=== PATIENT | female | born 1990 | race Two or more races ===

== ENCOUNTER 2017-03-04 16:01 | Emergency (ER) | payer SELFPAY ==
[~2017-03-04] VITALS: Ht 162.6 cm; Wt 53.5 kg
[2017-03-04 16:20] VITALS: BP 112/82
--- NOTE | 2017-03-04 16:27 | Emergency Room Report ---
History of Present Illness General Chief Complaint: Abdominal Pain Source: Patient Present Illness HPI Patient has a fairly complicated history. Patient has a feeding tube in place , ileostomy bag status post colon cancer resection. Did not have any chemotherapy prior to this patient reports that everything was done at [facility]. Feeding tube was placed about one month ago patient reports that she's having difficulty eating and vomits, and that is why she had the feeding tube placed Denies any headache or visual changes denies any neck pain or photophobia Patient feels that there is also increased output in the ileostomy bag Pain is diffuse 5/10 mainly concerned about vomiting as well Allergies: Coded Allergies: METOCLOPRAMIDE (Verified Allergy, Unknown, 03/04/17) Patient History Past Medical History: see triage record Pertinent Family History: none Last Menstrual Period: 02/25/17 Now: No Reviewed Nursing Documentation: PMH: Agreed, PSxH: Agreed Review of Systems All Other Systems: negative except mentioned in HPI Physical Exam Vital Signs Date Time Temp Pulse Resp B/P (MAP) Pulse Ox O2 Delivery O2 Flow Rate FiO2 03/04/17 16:06 98.8 105 15 107/75 99 Room Air Sp02 EP Interpretation: reviewed, normal General Appearance: mild distress - appears nauseated Head: normocephalic, atraumatic Eyes: bilateral eye PERRL, bilateral eye EOMI ENT: hearing grossly normal, normal pharynx, TMs + canals normal, uvula midline Neck: full range of motion, supple, no meningismus, no bony tend Respiratory: lungs clear, normal breath sounds, no rhonchi, no respiratory distress, no retraction, no accessory muscle use Cardiovascular #1: normal peripheral pulses, regular rate, rhythm, no edema, no gallop, no JVD, no murmur Gastrointestinal: no organomegaly, non-distended, no guarding, no hernia, no pulsatile mass, no rebound, other - Evidence of previous abdominal surgery, patient has ileostomy bag in the right lower abdomen, there is drainage, feeding tube is in the left upper quadrant. No obvious fluctuance Genitourinary: no CVA tenderness Musculoskeletal: normal inspection Neurologic: oriented x3, responsive, cup setter lockstitch III-XII nml as tested, motor strength/ tone normal, sensory intact Psychiatric: mood/affect normal Skin: warm/dry, palpation normal Lymphatic: normal inspection, no adenopathy Medical Decision Making Diagnostic Impression: Primary Impression: Abdominal pain ER Course With the patient's history and examination, multiple differentials considered, including but not limited to , ectopic , ovarian torsion, gastritis, cholecystitis, pancreatitis, appendicitis Given the patient's complicated history other differentials such as obstruction , perforation considered Patient's CAT scan result is fairly benign She hasn't significantly better throughout her stay No signs of any obvious infectious pathology patient reports that she is out of her Zofran medication she does have multispecialty followup At this time given the extended observation, extensive evaluation And the patient's improvement she is stable for initial conservative outpatient trial , Labs Test 03/04/17 16:31 03/04/17 16:40 Urine Color Pale yellow Urine Appearance Slightly cloudy Urine pH 5 (4.5-8.0) Urine Specific [place] 1.025 (1.005-1.035) Urine Protein Negative (NEGATIVE) Urine Glucose (UA) Negative (NEGATIVE) Urine Ketones Negative (NEGATIVE) Urine Occult Blood Negative (NEGATIVE) Urine Nitrite Negative (NEGATIVE) Urine Bilirubin Negative (NEGATIVE) Urine Urobilinogen Normal MG/DL (0.0-1.0) Urine Leukocyte Esterase 1+ (NEGATIVE) Urine RBC 0-2 /HPF (0 - 2) Urine WBC 2-4 /HPF (0 - 2) Urine Squamous Epithelial Cells Few /LPF (NONE/OCC) Urine Amorphous Sediment Moderate /LPF (NONE) Urine Bacteria Few /HPF (NONE) Urine HCG, Qualitative Negative White Blood Count 9.8 K/UL (4.8-10.8) Red Blood Count 4.42 M/UL (4.20-5.40) Hemoglobin 12.9 G/DL (12.0-16.0) Hematocrit 39.2 % (37.0-47.0) Mean Corpuscular Volume 89 FL (80-99) Mean Corpuscular Hemoglobin 29.3 PG (27.0-31.0) Mean Corpuscular Hemoglobin Concent 33.0 G/DL (32.0-36.0) Red Cell Distribution Width 15.1 % (11.6-14.8) Platelet Count 422 K/UL (150-450) Mean Platelet Volume 6.0 FL (6.5-10.1) Neutrophils (%) (Auto) 68.6 % (45.0-75.0) Lymphocytes (%) (Auto) 23.2 % (20.0-45.0) Monocytes (%) (Auto) 6.4 % (1.0-10.0) Eosinophils (%) (Auto) 0.5 % (0.0-3.0) Basophils (%) (Auto) 1.4 % (0.0-2.0) Sodium Level 138 mEQ/L (135-145) Potassium Level 4.2 mEQ/L (3.4-4.9) Chloride Level 98 mEQ/L (98-107) Carbon Dioxide Level 22 mEQ/L (20-30) Anion Gap 18 (5-15) Blood Urea Nitrogen 12 mg/dL (7-23) Creatinine 0.8 mg/dL (0.5-0.9) Estimat Glomerular Filtration Rate > 60 mL/min (>60) Glucose Level 102 mg/dL (74-106) Calcium Level 10.0 mg/dL (8.6-10.2) Total Bilirubin 0.8 mg/dL (0.0-1.2) Aspartate Amino Transf (AST/SGOT) 28 U/L (5-40) Alanine Aminotransferase (ALT/SGPT) 8 U/L (3-33) Alkaline Phosphatase 85 U/L (35-104) Total Protein 9.5 g/dL (6.6-8.7) Albumin 5.2 g/dL (3.5-5.2) Globulin 4.3 g/dL Albumin/Globulin Ratio 1.2 (1.0-2.7) Lipase 31 U/L (< 60) CT/MRI/US Diagnostic Results CT/MRI/US Diagnostic Results : Impression CT abdomen pelvis: Please refer to her report for full specifics, there is reading of multiple small nodular calcifications in the region of the pancreatic head and the uncinate process that could be related to chronic calcific pancreatitis however some appear to be possibly in the distal common bile duct no significant dilatation of the duct however is identified there is mild dilatation of pancreatic duct no evidence of renal calculi there is moderate left hydronephrosis with hydroureter uncertain etiology no urinary bladder no evidence of bowel junction or pneumoperitoneum Last Vital Signs Date Time Temp Pulse Resp B/P (MAP) Pulse Ox O2 Delivery O2 Flow Rate FiO2 03/04/17 16:06 98.8 105 15 107/75 99 Room Air Status: improved Disposition: HOME, SELF-CARE Condition: Improved Scripts Ondansetron Odt* (ZOFRAN ODT*) 4 Mg Tab.rapdis 4 MG ORAL Q6H Y for Nausea & Vomiting, #20 TAB 0 Refills Prov: ALIYA VAUGHN D.O. 03/04/17 Acetaminophen With Codeine (T#3) (TYLENOL #3 TAB*) Y Tab 1 TAB ORAL Q8H Y for For Pain, #15 TAB Prov: ALIYA VAUGHN D.O. 03/04/17 Referrals: NOT CHOSEN IPA/,REFERRING (PCP) Additional Instructions: Patient is provided with the discharge instructions notified to follow up with primary doctor in the next 2-3 days otherwise return to the er with any worsening symptoms. Please note that this report is being documented using [employer] technology. This can lead to erroneous entry secondary to incorrect interpretation by the dictating instrument. ALIYA VAUGHN D.O. Mar 04, 2017 16:27
[2017-03-04 16:55] LABS: BASOPHILS % (AUTO) 1.4 % (0.0-2.0); EOSINOPHILS % (AUTO) 0.5 % (0.0-3.0); LYMPHOCYTES % (AUTO) 23.2 % (20.0-45.0); MEAN CORPUSCULAR HEMOGLOBIN 29.3 PG (27.0-31.0); MEAN CORPUSCULAR VOLUME 89 FL (80-99); MONOCYTES % (AUTO) 6.4 % (1.0-10.0); NEUTROPHILS % (AUTO) 68.6 % (45.0-75.0); PLATELET COUNT 422 K/UL (150-450); RED BLOOD COUNT 4.42 M/UL (4.20-5.40); RED CELL DISTRIBUTION WIDTH 15.1 % (11.6-14.8); WHITE BLOOD COUNT 9.8 K/UL (4.8-10.8)
[2017-03-04] MEDS: DiphenhydrAMINE 50mg/ml Inj IVP ONE ×2 (16:56→17:26)
[2017-03-04 16:57] LABS: KETONES,URINE NEGATIVE (NEGATIVE); LEUKOCYTE ESTERASE ,URINE 1+ (NEGATIVE); NITRITE,URINE NEGATIVE (NEGATIVE); PH,URINE 5 (4.5-8.0); PROTEIN,URINE NEGATIVE (NEGATIVE); UROBILINOGEN,URINE NORMAL MG/DL (0.0-1.0)
[2017-03-04 16:59] LABS: APPEARANCE,URINE SLIGHTLY CLOUDY
[2017-03-04] MEDS: HYDROmorphone 1mg/ml Carpuject IVP ONE ×2 (17:05→17:26)
[2017-03-04 17:07] LABS: RBC,URINE 0-2 /HPF (0 - 2)
[2017-03-04 17:08] LABS: AMORPHOUS SEDIMENT,UR MODERATE /LPF; BACTERIA,URINE FEW /HPF; SQUAMOUS EPITHELIAL CELL,UR FEW /LPF (NONE/OCC)
[2017-03-04 17:11] LABS: ALANINE AMINOTRANSFERASE 8 U/L (3-33); ALBUMIN/GLOBULIN RATIO 1.2 (1.0-2.7); ANION GAP 18 (5-15); ASPARTATE AMINO TRANSFERASE 28 U/L (5-40); CARBON DIOXIDE 22 mEQ/L (20-30); CHLORIDE 98 mEQ/L (98-107); CREATININE 0.8 mg/dL (0.5-0.9); GLOMERULAR FILTRATION RATE > 60 mL/min (>60); HEMOLYSIS 126; LIPASE 31 U/L (< 60); POTASSIUM 4.2 mEQ/L (3.4-4.9); SODIUM 138 mEQ/L (135-145); TOTAL PROTEIN 9.5 g/dL (6.6-8.7)
[2017-03-04 18:41] VITALS: BP 111/68
[2017-03-04] MEDS ORDERED: DiphenhydrAMINE 50mg/ml Inj IVP ONE (19:45)
[2017-03-04] MEDS ORDERED: HYDROmorphone 1mg/ml Carpuject IVP ONE (19:45)
[2017-03-04 19:47] VITALS: BP 101/67
[2017-03-04] MEDS ORDERED: ZOFRAN ODT4 MG ORAL (20:22)
[2017-03-04] MEDS ORDERED: ACETAMINOPHEN-1 EAC1 ORAL (20:22)
[2017-03-04 20:32] VITALS: BP 107/2
--- NOTE | 2017-03-05 11:33 | Diagnostic Imaging Report ---
Indication: Abdominal pain Technique: CT scan of the abdomen and pelvis was performed from the diaphragms to the symphysis pubis with bowel contrast material. No IV contrast was administered per specific request of the ordering physician. 5 mm sections were generated. Axial, coronal, and sagittal images are presented. Dose: Total Dose Length Product - DLP [address] Dose Index - CTDIvol(s) 10.99 mGy. Comparison: None Findings: There is a gastrojejunostomy tube in the stomach. The jejunostomy portion of the tube appears to be in the second portion of the duodenum. This was coiled in the stomach. The liver is normal. The gallbladder is unremarkable. The spleen is normal. There are calcifications in the head of the pancreas. The pancreatic duct is prominent. Adrenal glands are unremarkable. There is left hydronephrosis and hydroureter. The right kidney is unremarkable. Proximal small bowel is mildly dilated with some air-fluid levels. This is nonobstructive however. A right lower quadrant ileostomy is evident. Most of the colon appears absent. It is unsure whether a small portion of colon is present distally. A small amount of fluid is noted in the vagina. The uterus is normal. The bladder is unremarkable. Multiple pelvic clips are present.. Impression: Lack of IV contrast limits evaluation. Gastrojejunostomy tube with the tip of the tube in the duodenum. Most of the jejunostomy portion of the tube is curled in the stomach. A left hydronephrosis and hydroureter. Previous at least partial colectomy. It is uncertain whether or not any colon is left in the pelvis. Ileostomy in the right lower quadrant. Small amount of fluid in the vagina. Dilated proximal small bowel loops. This is nonobstructive. Calcification in the pancreatic head consistent with chronic pancreatitis. Mild prominence of the pancreatic duct. The above report is concordant with preliminary reading by [employer] . The CT scanner at [facility] is accredited by the [employer] and the scans are performed using protocols designed to limit radiation exposure to as low as reasonably achievable to attain images of sufficient resolution adequate for diagnostic evaluation.
== END 2017-03-04 20:32 | disposition home or self-care (01) ==
LOC: EMR 16:15
DX: R10.9 Unspecified abdominal pain (principal); Z85.038 Personal history of other malignant neoplasm of large intestine; Z88.8 Allergy status to other drugs, medicaments and biological substances; N13.30 Unspecified hydronephrosis; Z93.2 Ileostomy status
CPT/HCPCS: 36415; 74176; 80053; 81003; 81025; 83690; 85025; 96361; 96374; 96375; 99284; J1170; J1200; J2405

== ENCOUNTER 2017-03-13 14:39 | Emergency (ER) | payer MEDICAID ==
[~2017-03-13] VITALS: Ht 162.6 cm; Wt 53.5 kg
[~2017-03-13 14:39] MED LIST: ACETAMINOPHEN-1 EAC1 ORAL; ZOFRAN ODT4 MG ORAL
--- NOTE | 2017-03-13 15:07 | Emergency Room Report ---
History of Present Illness General Chief Complaint: Abdominal Pain Source: Patient, Medical Record Present Illness HPI 27YOF walk-in with intermittent 4-5 days sharp, 8/10 lower abdominal pain "across the whole bottom of my stomach" and radiating to left flank with assoc nausea/vomiting, unable to tolerate PO and chills. Diarrhea in iliostomy bag No urinary complaints Complicated past surgical history - multiple surgical interventions previous Was seen here 9 days ago. Had normal labs, CTAP Allergies: Coded Allergies: METOCLOPRAMIDE (Verified Allergy, Unknown, 03/04/17) Patient History Past Medical History: none Past Surgical History: other - iliostomy, multiple abd surgeries Pertinent Family History: none Social History: Denies: smoking, alcohol use, drug use Last Menstrual Period: 02/25/17 Now: No Immunizations: UTD Reviewed Nursing Documentation: PMH: Agreed, PSxH: Agreed Nursing Documentation-PMH Hx Cancer: Yes - Colon - ileostomy and g-j tube ~ 6 weeks post op; Pancreatitis Review of Systems All Other Systems: negative except mentioned in HPI Physical Exam Vital Signs Date Time Temp Pulse Resp B/P (MAP) Pulse Ox O2 Delivery O2 Flow Rate FiO2 03/13/17 14:48 99.0 93 16 110/73 100 Room Air Sp02 EP Interpretation: reviewed, normal General Appearance: normal inspection, well appearing, no apparent distress, alert, GCS 15, non-toxic Head: normocephalic, atraumatic Eyes: bilateral eye PERRL, bilateral eye EOMI ENT: normal ENT inspection, hearing grossly normal, normal voice Neck: normal inspection, full range of motion, supple, no bony tend Respiratory: normal inspection, lungs clear, normal breath sounds, no respiratory distress, no retraction, no wheezing Cardiovascular #1: regular rate, rhythm, no edema Gastrointestinal: normal inspection, normal bowel sounds, soft, no guarding, no hernia, other - TTP across lower abdomen. No peritonitis. Mild left CVAT. 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 nml as tested, motor strength/tone normal, speech normal Psychiatric: normal inspection, judgement/insight normal, mood/affect normal Skin: normal inspection, normal color, no rash Lymphatic: normal inspection Medical Decision Making Diagnostic Impression: Primary Impression: Abdominal pain Qualified Codes: R10.84 - Generalized abdominal pain ER Course H&H stable No leuks No metabolic abnormalities UA negative for infection Urine preg negative Analgesia, pepcid, anti-emetic given Abd no non-tender on serial exam Feels better Tolerating PO In light of normal CT last week and normal labs today, no acute need for repeat imaging Low suspicion for acute bacterial or surgical process In shared decision making, patient will go home - lives close by - with bland diet, PRN zofran, pepcid Return for worsening pain Last Vital Signs Date Time Temp Pulse Resp B/P (MAP) Pulse Ox O2 Delivery O2 Flow Rate FiO2 03/13/17 14:48 99.0 93 16 110/73 100 Room Air Status: improved Disposition: HOME, SELF-CARE Scripts Ondansetron Odt* (ZOFRAN ODT*) 4 Mg Tab.rapdis 4 MG ORAL BID Y for Nausea & Vomiting for 7 Days, #30 TAB 0 Refills Prov: SIDNEY FLETCHER M.D. 03/13/17 Famotidine (PEPCID) 40 Mg Tablet 40 MG PO DAILY for 7 Days, #14 TAB 0 Refills Prov: SIDNEY FLETCHER M.D. 03/13/17 SIDNEY FLETCHER M.D. Mar 13, 2017 15:07
[2017-03-13] MEDS ORDERED: Morphine Sulfate 2mg/ml Inj IVP ONE (15:15)
[2017-03-13] MEDS ORDERED: LR 1000ml 1,000 ML IV STA (15:29)
[2017-03-13 15:54] LABS: APPEARANCE,URINE CLEAR; KETONES,URINE NEGATIVE (NEGATIVE); LEUKOCYTE ESTERASE ,URINE NEGATIVE (NEGATIVE); NITRITE,URINE NEGATIVE (NEGATIVE); PH,URINE 6 (4.5-8.0); PROTEIN,URINE NEGATIVE (NEGATIVE); UROBILINOGEN,URINE NORMAL MG/DL (0.0-1.0)
[2017-03-13 16:00] LABS: BASOPHILS % (AUTO) 1.5 % (0.0-2.0); EOSINOPHILS % (AUTO) 1.5 % (0.0-3.0); LYMPHOCYTES % (AUTO) 32.8 % (20.0-45.0); MEAN CORPUSCULAR HEMOGLOBIN 27.8 PG (27.0-31.0); MEAN CORPUSCULAR HGB CONC 31.1 G/DL (32.0-36.0); MEAN CORPUSCULAR VOLUME 89 FL (80-99); MEAN PLATELET VOLUME 5.7 FL (6.5-10.1); MONOCYTES % (AUTO) 6.4 % (1.0-10.0); NEUTROPHILS % (AUTO) 57.8 % (45.0-75.0); PLATELET COUNT 307 K/UL (150-450); RED BLOOD COUNT 3.51 M/UL (4.20-5.40); RED CELL DISTRIBUTION WIDTH 15.6 % (11.6-14.8); WHITE BLOOD COUNT 5.6 K/UL (4.8-10.8)
[2017-03-13 16:07] LABS: ALANINE AMINOTRANSFERASE < 5 U/L (3-33); ANION GAP 18 (5-15); ASPARTATE AMINO TRANSFERASE 14 U/L (5-40); CALCIUM 8.7 mg/dL (8.6-10.2); CARBON DIOXIDE 19 mEQ/L (20-30); CHLORIDE 103 mEQ/L (98-107); CREATININE 0.7 mg/dL (0.5-0.9); GLOMERULAR FILTRATION RATE > 60 mL/min (>60); HEMOLYSIS 5; LIPASE 36 U/L (< 60); POTASSIUM 3.6 mEQ/L (3.4-4.9); SODIUM 140 mEQ/L (135-145); TOTAL PROTEIN 7.3 g/dL (6.6-8.7)
[2017-03-13] MEDS ORDERED: Famotidine 20 MG/ 2ML VIAL IVP ONE (16:15)
[2017-03-13] MEDS ORDERED: ZOFRAN ODT4 MG ORAL (16:28)
[2017-03-13] MEDS ORDERED: PEPCID40 MG PO (16:28)
[2017-03-13 17:30] VITALS: BP 122/81
== END 2017-03-13 17:30 | disposition home or self-care (01) ==
LOC: EMR 17:18
DX: R10.30 Lower abdominal pain, unspecified (principal); Z93.2 Ileostomy status
CPT/HCPCS: 36415; 80053; 81003; 81025; 83690; 85025; 96374; 96375; 99284; J2270; J2405; J7120; S0028

== ENCOUNTER 2017-03-18 02:47 | Emergency (ER) | payer MEDICAID ==
[~2017-03-18] VITALS: Ht 162.6 cm; Wt 53.5 kg
[~2017-03-18 02:47] MED LIST changes: +PEPCID40 MG PO
[2017-03-18] MEDS ORDERED: IRON159 MG PO (02:57)
[2017-03-18] MEDS ORDERED: HYDROmorphone 1mg/ml Carpuject IVP ONE (03:15)
--- NOTE | 2017-03-18 03:23 | Emergency Room Report ---
History of Present Illness General Chief Complaint: Abdominal Pain Source: Patient Present Illness HPI This is a 27-year-old female with a history of colon cancer status post resection. She has an ileostomy and a colostomy. She presents with chief complaint abdominal pain. Ongoing for about a week now. Increasing pain. Increasing nausea and vomiting. Decreased stool output. Pain is 10 out of 10, sharp in nature. Diffuse. Allergies: Coded Allergies: METOCLOPRAMIDE (Verified Allergy, Unknown, 03/04/17) Patient History Past Medical History: see triage record, old chart reviewed Past Surgical History: other Pertinent Family History: none Social History: Denies: smoking Last Menstrual Period: 02/25/17 Now: No Immunizations: other Reviewed Nursing Documentation: PMH: Agreed, PSxH: Agreed Nursing Documentation-PMH Past Medical History: No History, Except For Hx Cancer: Yes - Colon - ileostomy bag and g-j tube ~ 6 weeks post op; Pancreatitis Review of Systems Eye: Denies: eye pain, blurred vision ENT: Denies: ear pain, nose congestion, throat swelling Respiratory: Denies: cough, shortness of breath Cardiovascular: Denies: chest pain, palpitations Gastrointestinal: Reports: abdominal pain, nausea, vomiting, Denies: diarrhea Musculoskeletal: Denies: back pain, joint pain Skin: Denies: rash Neurological: Denies: headache, numbness Endocrine: Denies: increased thirst, increased urine Hematologic/Lymphatic: Denies: easy bruising All Other Systems: negative except mentioned in HPI Physical Exam Vital Signs Date Time Temp Pulse Resp B/P (MAP) Pulse Ox O2 Delivery O2 Flow Rate FiO2 03/18/17 02:52 97.9 93 17 116/75 98 Room Air vitals normal Sp02 EP Interpretation: reviewed, normal General Appearance: well appearing, no apparent distress, alert Head: normocephalic, atraumatic Eyes: bilateral eye PERRL, bilateral eye EOMI ENT: hearing grossly normal, normal pharynx Neck: full range of motion, supple, no meningismus Respiratory: chest non-tender, lungs clear, normal breath sounds Cardiovascular #1: regular rate, rhythm, no murmur Gastrointestinal: no mass, no organomegaly, no bruit, non-distended, abnormal bowel sounds - Hyperactive, tenderness - Diffuse Musculoskeletal: back normal, gait/station normal, normal range of motion Psychiatric: mood/affect normal Skin: warm/dry Medical Decision Making Diagnostic Impression: Primary Impression: Abdominal pain Qualified Codes: R10.9 - Unspecified abdominal pain Additional Impression: Opioid dependence Qualified Codes: F11.20 - Opioid dependence, uncomplicated ER Course Patient present with abdominal pain. CT scan unremarkable. Everything is chronic. On the [facility] system, she has multiple visit to different hospital and had prescription from different doctors. I suspect a drug-seeking behavior here. We'll discharge home. Lab Results Impression labs unremarkable CT/MRI/US Diagnostic Results CT/MRI/US Diagnostic Results : Imaging Test Ordered: CT abdomen and pelvis Impression read by radiologist. No acute changes. Last Vital Signs Date Time Temp Pulse Resp B/P (MAP) Pulse Ox O2 Delivery O2 Flow Rate FiO2 03/18/17 02:52 97.9 93 17 116/75 98 Room Air Status: improved Disposition: HOME, SELF-CARE Condition: Stable Scripts Tramadol Hcl* (ULTRAM*) 50 Mg Tablet 50 MG ORAL Q6H Y for For Pain, #15 TAB 0 Refills Prov: TACO BONILLA M.D. 03/18/17 Referrals: NOT CHOSEN IPA/,REFERRING (PCP) Patient Instructions: Abdominal Pain, Adult Additional Instructions: Followup with your DrNiya in 7 days. Stop going to different ERs for pain medication. This will increase her risk for getting CAT scan and adverse affect of radiation. Return if symptom worsen. TACO BONILLA M.D. Mar 18, 2017 03:23
[2017-03-18 03:31] LABS: BASOPHILS % (AUTO) 1.7 % (0.0-2.0); EOSINOPHILS % (AUTO) 1.5 % (0.0-3.0); LYMPHOCYTES % (AUTO) 38.3 % (20.0-45.0); MEAN CORPUSCULAR HEMOGLOBIN 27.5 PG (27.0-31.0); MEAN CORPUSCULAR HGB CONC 31.4 G/DL (32.0-36.0); MEAN CORPUSCULAR VOLUME 87 FL (80-99); MONOCYTES % (AUTO) 6.6 % (1.0-10.0); NEUTROPHILS % (AUTO) 51.9 % (45.0-75.0); PLATELET COUNT 377 K/UL (150-450); RED BLOOD COUNT 4.49 M/UL (4.20-5.40); RED CELL DISTRIBUTION WIDTH 15.1 % (11.6-14.8); WHITE BLOOD COUNT 7.6 K/UL (4.8-10.8)
[2017-03-18 03:33] LABS: APPEARANCE,URINE CLEAR; KETONES,URINE NEGATIVE (NEGATIVE); LEUKOCYTE ESTERASE ,URINE NEGATIVE (NEGATIVE); NITRITE,URINE NEGATIVE (NEGATIVE); PH,URINE 5 (4.5-8.0); PROTEIN,URINE NEGATIVE (NEGATIVE); UROBILINOGEN,URINE NORMAL MG/DL (0.0-1.0)
[2017-03-18 03:44] LABS: ALANINE AMINOTRANSFERASE 7 U/L (3-33); ALBUMIN/GLOBULIN RATIO 1.2 (1.0-2.7); ANION GAP 18 (5-15); ASPARTATE AMINO TRANSFERASE 17 U/L (5-40); CALCIUM 9.1 mg/dL (8.6-10.2); CARBON DIOXIDE 22 mEQ/L (20-30); CHLORIDE 98 mEQ/L (98-107); CREATININE 0.7 mg/dL (0.5-0.9); GLOMERULAR FILTRATION RATE > 60 mL/min (>60); HEMOLYSIS 3; LIPASE 32 U/L (< 60); POTASSIUM 3.6 mEQ/L (3.4-4.9); SODIUM 138 mEQ/L (135-145); TOTAL PROTEIN 8.5 g/dL (6.6-8.7)
[2017-03-18] MEDS ORDERED: TRAMADOL HCL50 MG ORAL (05:48)
[2017-03-18 06:02] VITALS: BP 122/88
--- NOTE | 2017-03-18 09:20 | Diagnostic Imaging Report ---
Indication: Abdominal pain Technique: CT of the abdomen and pelvis utilizing automated exposure control with intravenous contrast. Venous scanning performed. CT dose: Total DLP 473 mGycm; CTDI vol 10.6 mGy Comparison: None Findings: The liver, adrenal glands and spleen are unremarkable. There is questionable density within the gallbladder. Punctate calcifications are demonstrated of the pancreatic head with mildly prominent pancreatic duct measuring up to 2 mm. Feeding tube is present with the tip at the second/third portion junction of the duodenum. There is again mild left hydronephrosis and proximal hydroureter. The right kidney is grossly unremarkable. The small bowel loops are normal in caliber. Postsurgical changes of the bowel are seen with a right lower quadrant ostomy. There is evidence of colectomy. There is stable mild wall bowel wall thickening adjacent to the anastomotic sutures in the right pelvis. Mild fluid is again seen in the vagina. The osseous structures are stable. Impression: Limit evaluation of the bowel without oral contrast. Stable feeding tube with tip in the duodenum. Stable mild to moderate left hydronephrosis and proximal hydroureter. No calculi. Stable postsurgical changes of bowel with right lower quadrant ostomy. No evidence of obstruction. Small amount of fluid in the vagina, unchanged. Calcification of the pancreatic head with mild prominence of the pancreatic duct suggestive of chronic pancreatitis. Other stable findings of the abdomen and pelvis as above. The CT scanner at [facility] is accredited by the [employer] and the scans are performed using protocols designed to limit radiation exposure to as low as reasonably achievable to attain images of sufficient resolution adequate for diagnostic evaluation.
== END 2017-03-18 06:04 | disposition home or self-care (01) ==
LOC: EMR 03:19
DX: R10.9 Unspecified abdominal pain (principal); R11.2 Nausea with vomiting, unspecified; F11.20 Opioid dependence, uncomplicated; Z88.8 Allergy status to other drugs, medicaments and biological substances; Z85.038 Personal history of other malignant neoplasm of large intestine; Z93.2 Ileostomy status; Z93.1 Gastrostomy status
CPT/HCPCS: 36415; 74177; 80053; 81003; 81025; 83690; 85025; 96374; 96375; 99284; J1170; J2405; Q9967

== ENCOUNTER 2017-03-22 00:11 | Emergency (ER) | payer MEDICAID ==
[~2017-03-22] VITALS: Ht 162.6 cm; Wt 54.0 kg
[~2017-03-22 00:11] MED LIST changes: +IRON159 MG PO; +TRAMADOL HCL50 MG ORAL
[2017-03-22] MEDS ORDERED: PHENERGAN25 M1 ORAL (00:39)
--- NOTE | 2017-03-22 00:40 | Emergency Room Report ---
History of Present Illness General Chief Complaint: Abdominal Pain Source: Patient Present Illness HPI Is a 27-year-old female with a complex medical history. She has a history of colon cancer status post resection. She has an ileostomy and a colonoscopy. She has multiple CT scan in the past. She has been here 4 times this month already. This point to [facility] for outpatient CT scan. She has some mild hydronephrosis and mild pancreatic duct dilatation. 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 This can be done as an outpatient. She presents with her typical abdominal pain with nausea vomiting and diarrhea. No fever or chills. Pain is 9/10. She said she can't tolerate the Percocet very well. Zofran is not helping much. Ultram is not helping much either. Allergies: Coded Allergies: METOCLOPRAMIDE (Verified Allergy, Unknown, 03/04/17) Patient History Past Medical History: see triage record, old chart reviewed Past Surgical History: other Pertinent Family History: none Social History: Denies: smoking Last Menstrual Period: 02/25/17 Now: No : 2 Para: 1 Immunizations: other Reviewed Nursing Documentation: PMH: Agreed, PSxH: Agreed Nursing Documentation-PMH Hx Cancer: Yes - Colon - ileostomy bag and g-j tube ~ 6 weeks post op; Pancreatitis Review of Systems Eye: Denies: eye pain, blurred vision ENT: Denies: ear pain, nose congestion, throat swelling Respiratory: Denies: cough, shortness of breath Cardiovascular: Denies: chest pain, palpitations Gastrointestinal: Reports: abdominal pain, diarrhea, nausea, vomiting Musculoskeletal: Denies: back pain, joint pain Skin: Denies: rash Neurological: Denies: headache, numbness Endocrine: Denies: increased thirst, increased urine Hematologic/Lymphatic: Denies: easy bruising All Other Systems: negative except mentioned in HPI Physical Exam Vital Signs Date Time Temp Pulse Resp B/P (MAP) Pulse Ox O2 Delivery O2 Flow Rate FiO2 03/22/17 00:15 97.9 103 20 105/70 100 Room Air vitals normal Sp02 EP Interpretation: reviewed, normal General Appearance: well appearing, no apparent distress, alert Head: normocephalic, atraumatic Eyes: bilateral eye PERRL, bilateral eye EOMI ENT: hearing grossly normal, normal pharynx Neck: full range of motion, supple, no meningismus Respiratory: chest non-tender, lungs clear, normal breath sounds Cardiovascular #1: regular rate, rhythm, no murmur Gastrointestinal: normal bowel sounds, no mass, no organomegaly, no bruit, non- distended, abnormal bowel sounds - Hyperactive, tenderness - Diffuse Musculoskeletal: back normal, gait/station normal, normal range of motion Psychiatric: mood/affect normal Skin: warm/dry Medical Decision Making Diagnostic Impression: Primary Impression: Abdominal pain Qualified Codes: R10.84 - Generalized abdominal pain ER Course Patient with exacerbation of her chronic abdominal pain. I see no need for further workup said she was here recently. We'll discharge home. Last Vital Signs Date Time Temp Pulse Resp B/P (MAP) Pulse Ox O2 Delivery O2 Flow Rate FiO2 03/22/17 00:15 97.9 103 20 105/70 100 Room Air Status: improved Disposition: HOME, SELF-CARE Condition: Stable Scripts Promethazine Hcl* (PHENERGAN*) 25 Mg Tablet 25 MG ORAL Q6H, #30 TAB 0 Refills Prov: TACO BONILLA M.D. 03/22/17 Patient Instructions: Abdominal Pain, Adult Additional Instructions: Followup with your DrNiya in 2-3 days. Return if symptom worsen. TACO BONILLA M.D. Mar 22, 2017 00:40
[2017-03-22] MEDS ORDERED: HYDROmorphone 1mg/ml Carpuject IM ONE (00:45)
[2017-03-22 02:17] VITALS: BP 105/70
== END 2017-03-22 03:19 | disposition home or self-care (01) ==
LOC: EMR 00:35
DX: R10.84 Generalized abdominal pain (principal); G89.29 Other chronic pain; Z93.2 Ileostomy status; C18.9 Malignant neoplasm of colon, unspecified; Z88.8 Allergy status to other drugs, medicaments and biological substances; N13.30 Unspecified hydronephrosis; K55.1 Chronic vascular disorders of intestine; R11.2 Nausea with vomiting, unspecified
CPT/HCPCS: 96360; 96372; 99284; J1170

== ENCOUNTER 2017-04-05 13:56 | Emergency (ER) | payer MEDICAID ==
[~2017-04-05] VITALS: Ht 162.6 cm; Wt 54.0 kg
[~2017-04-05 13:56] MED LIST changes: +PHENERGAN25 M1 ORAL
[2017-04-05] MEDS ORDERED: Mylanta II UD 30ml ORAL ONE (15:00)
[2017-04-05] MEDS ORDERED: Morphine Sulfate 4mg/ml Inj IVP ONE (15:30)
[2017-04-05] MEDS ORDERED: DiphenhydrAMINE 50mg/ml Inj IVP ONE (15:30)
[2017-04-05 15:46] LABS: APPEARANCE,URINE SLIGHTLY CLOUDY; KETONES,URINE NEGATIVE (NEGATIVE); LEUKOCYTE ESTERASE ,URINE NEGATIVE (NEGATIVE); NITRITE,URINE NEGATIVE (NEGATIVE); PH,URINE 8 (4.5-8.0); PROTEIN,URINE NEGATIVE (NEGATIVE); UROBILINOGEN,URINE NORMAL MG/DL (0.0-1.0)
--- NOTE | 2017-04-05 15:46 | Emergency Room Report ---
History of Present Illness General Chief Complaint: Abdominal Pain Source: Patient Present Illness [facility] This is 27-year-old female brought in by self after increased abdominal pain. Patient prior history of chronic abdominal pain do to a biliary stricture. 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 The patient having previous appointment her surgery. She reported having had taken her pain medications without relief. Patient had not been vomiting. She reported having some nausea. She denied any black or bloody stools or hematemesis. She has not been any fever. Allergies: Coded Allergies: METOCLOPRAMIDE (Verified Allergy, Unknown, 03/04/17) Patient History Past Medical History: see triage record Last Menstrual Period: 03/27/17 Now: No : 1 Para: 1 Reviewed Nursing Documentation: PMH: Agreed, PSxH: Agreed Nursing Documentation-PMH Past Medical History: No History, Except For Hx Cancer: Yes - Colon - ileostomy bag and g-j tube ~ 6 weeks post op; Pancreatitis Review of Systems All Other Systems: negative except mentioned in HPI Physical Exam Vital Signs Date Time Temp Pulse Resp B/P (MAP) Pulse Ox O2 Delivery O2 Flow Rate FiO2 04/05/17 14:00 97.9 96 16 124/80 100 Room Air Sp02 EP Interpretation: reviewed, normal General Appearance: normal inspection, well appearing, no apparent distress, alert Head: atraumatic ENT: normal ENT inspection, hearing grossly normal, normal voice Neck: normal inspection, full range of motion, supple, no bony tend Respiratory: normal inspection, lungs clear, normal breath sounds, no respiratory distress, no retraction, no wheezing Cardiovascular #1: regular rate, rhythm, no edema Gastrointestinal: normal inspection, normal bowel sounds, non tender, soft, no guarding, no hernia Genitourinary: no CVA tenderness Musculoskeletal: normal inspection, back normal, normal range of motion Neurologic: normal inspection, alert, oriented x3, responsive, 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 Differential diagnoses included ischemic bowel, appendicitis, perforated viscus, abdominal aortic aneurysm, inferior myocardial infarction, viral gastroenteritis Because of complexity of patient's case laboratory testing and imaging studies were ordered. Lab for testing was unremarkable the patient noted be somewhat anemic however this is not different from her previous exams. Patient was noted to have been scheduled for surgery. Patient was given IV pain medications. Patient has had been seen by surgery have adequate dosage of pain medication. The patient was given prescription for Bentyl. She is advised followup with her surgeon for operative management of her intestinal problems. Labs Test 04/05/17 15:00 White Blood Count 6.7 K/UL (4.8-10.8) Red Blood Count 3.67 M/UL (4.20-5.40) Hemoglobin 9.6 G/DL (12.0-16.0) Hematocrit 33.3 % (37.0-47.0) Mean Corpuscular Volume 91 FL (80-99) Mean Corpuscular Hemoglobin 26.3 PG (27.0-31.0) Mean Corpuscular Hemoglobin Concent 28.9 G/DL (32.0-36.0) Red Cell Distribution Width 15.7 % (11.6-14.8) Platelet Count 444 K/UL (150-450) Mean Platelet Volume 5.1 FL (6.5-10.1) Neutrophils (%) (Auto) 60.8 % (45.0-75.0) Lymphocytes (%) (Auto) 28.0 % (20.0-45.0) Monocytes (%) (Auto) 7.0 % (1.0-10.0) Eosinophils (%) (Auto) 2.5 % (0.0-3.0) Basophils (%) (Auto) 1.8 % (0.0-2.0) Urine Color Pale yellow Urine Appearance Slightly cloudy Urine pH 8 (4.5-8.0) Urine Specific [place] 1.010 (1.005-1.035) Urine Protein Negative (NEGATIVE) Urine Glucose (UA) Negative (NEGATIVE) Urine Ketones Negative (NEGATIVE) Urine Occult Blood Negative (NEGATIVE) Urine Nitrite Negative (NEGATIVE) Urine Bilirubin Negative (NEGATIVE) Urine Urobilinogen Normal MG/DL (0.0-1.0) Urine Leukocyte Esterase Negative (NEGATIVE) Urine RBC 0-2 /HPF (0 - 2) Urine WBC 0-2 /HPF (0 - 2) Urine Squamous Epithelial Cells Moderate /LPF (NONE/OCC) Urine Bacteria Few /HPF (NONE) Urine HCG, Qualitative Negative Sodium Level 135 MMOL/L (136-145) Potassium Level 3.8 MMOL/L (3.5-5.1) Chloride Level 101 MMOL/L (98-107) Carbon Dioxide Level 27 MMOL/L (21-32) Anion Gap 7 (5-15) Blood Urea Nitrogen 10 mg/dL (7-18) Creatinine 0.9 MG/DL (0.55-1.30) Estimat Glomerular Filtration Rate > 60 mL/min (>60) Glucose Level 94 MG/DL (74-106) Calcium Level 9.2 MG/DL (8.5-10.1) Total Bilirubin 0.3 MG/DL (0.2-1.0) Aspartate Amino Transf (AST/SGOT) 23 U/L (15-37) Alanine Aminotransferase (ALT/SGPT) 21 U/L (12-78) Alkaline Phosphatase 116 U/L (46-116) Total Protein 8.2 G/DL (6.4-8.2) Albumin 3.4 G/DL (3.4-5.0) Globulin 4.8 g/dL Albumin/Globulin Ratio 0.7 (1.0-2.7) Lipase 73 U/L (73-393) EKG Diagnostic Results Rate: normal Rhythm: NSR ST Segments: no acute changes Rhythm Strip Diag. Results EP Interpretation: yes Rhythm: NSR, no PVC's, no ectopy Last Vital Signs Date Time Temp Pulse Resp B/P (MAP) Pulse Ox O2 Delivery O2 Flow Rate FiO2 04/05/17 14:00 97.9 96 16 124/80 100 Room Air Status: improved Disposition: HOME, SELF-CARE Condition: Stable Scripts Dicyclomine Hcl* (BENTYL*) 10 Mg Capsule 10 MG ORAL FOUR TIMES A DAY, #30 CAP Prov: Jayesh Abraham 04/05/17 Referrals: NOT CHOSEN [facility]/,REFERRING (PCP) Jayesh Abraham Apr 05, 2017 15:46
[2017-04-05 15:54] LABS: BASOPHILS % (AUTO) 1.8 % (0.0-2.0); EOSINOPHILS % (AUTO) 2.5 % (0.0-3.0); MEAN CORPUSCULAR HEMOGLOBIN 26.3 PG (27.0-31.0); MEAN CORPUSCULAR HGB CONC 28.9 G/DL (32.0-36.0); MEAN CORPUSCULAR VOLUME 91 FL (80-99); MEAN PLATELET VOLUME 5.1 FL (6.5-10.1); NEUTROPHILS % (AUTO) 60.8 % (45.0-75.0); PLATELET COUNT 444 K/UL (150-450); RED BLOOD COUNT 3.67 M/UL (4.20-5.40); RED CELL DISTRIBUTION WIDTH 15.7 % (11.6-14.8); WHITE BLOOD COUNT 6.7 K/UL (4.8-10.8)
[2017-04-05 16:14] LABS: ALANINE AMINOTRANSFERASE 21 U/L (12-78); ALBUMIN/GLOBULIN RATIO 0.7 (1.0-2.7); ANION GAP 7 (5-15); ASPARTATE AMINO TRANSFERASE 23 U/L (15-37); CALCIUM 9.2 MG/DL (8.5-10.1); CARBON DIOXIDE 27 MMOL/L (21-32); CHLORIDE 101 MMOL/L (98-107); CREATININE 0.9 MG/DL (0.55-1.30); GLOMERULAR FILTRATION RATE > 60 mL/min (>60); LIPASE 73 U/L (73-393); POTASSIUM 3.8 MMOL/L (3.5-5.1); SODIUM 135 MMOL/L (136-145); TOTAL PROTEIN 8.2 G/DL (6.4-8.2)
[2017-04-05 16:15] LABS: RBC,URINE 0-2 /HPF (0 - 2); WBC,URINE 0-2 /HPF (0 - 2)
[2017-04-05 16:16] LABS: BACTERIA,URINE FEW /HPF; SQUAMOUS EPITHELIAL CELL,UR MODERATE /LPF (NONE/OCC)
[2017-04-05] MEDS ORDERED: BENTYL10 MG ORAL (16:49)
[2017-04-05 16:55] VITALS: BP 122/75
[2017-04-05] MEDS ORDERED: Morphine Sulfate 2mg/ml Inj IVP ONE (17:00)
[2017-04-05 17:02] VITALS: BP 122/75
== END 2017-04-05 17:19 | disposition home or self-care (01) ==
LOC: EMR 14:25
DX: R10.9 Unspecified abdominal pain (principal); Z93.2 Ileostomy status; Z85.038 Personal history of other malignant neoplasm of large intestine
CPT/HCPCS: 36415; 80053; 81003; 81025; 83690; 85025; 96361; 96374; 96375; 99284; J1200; J2270; J2405

== ENCOUNTER 2017-06-03 17:35 | Emergency (ER) | payer MEDICAID, OTHER ==
[~2017-06-03] VITALS: Ht 162.6 cm; Wt 53.1 kg
[~2017-06-03 17:35] MED LIST changes: +BENTYL10 MG ORAL
[2017-06-03 17:57] VITALS: BP 115/56
[2017-06-03 18:50] VITALS: BP 107/64
[2017-06-03] MEDS ORDERED: Morphine Sulfate 4mg/ml Inj IVP ONE (19:15)
[2017-06-03] MEDS ORDERED: Sodium Chloride 500ML 500 ML IV ONE (19:15)
--- NOTE | 2017-06-03 19:19 | Emergency Room Report ---
History of Present Illness General Chief Complaint: Abdominal Pain Source: Patient Present Illness HPI Patient presents with complaints of abdominal pain Initial complaint is regarding discomfort just at the feeding tube site She feels that inside feels irritated Denies any vomiting Patient reports that she was set for a Whipple procedure on however secondary to insurance change was not able to have a done Also complains of epigastric pain Patient is on Protonix and Pepcid Denies any diarrhea as any fevers or chills Allergies: Coded Allergies: KETOROLAC (Verified Allergy, Unknown, Hives, 06/03/17) METOCLOPRAMIDE (Verified Allergy, Unknown, 03/04/17) Patient History Past Medical History: see triage record Pertinent Family History: none Last Menstrual Period: 05/18/17 Now: No Reviewed Nursing Documentation: PMH: Agreed, PSxH: Agreed Nursing Documentation-PMH Hx Cancer: Yes - COLON CANCER. Review of Systems All Other Systems: negative except mentioned in HPI Physical Exam Vital Signs Date Time Temp Pulse Resp B/P (MAP) Pulse Ox O2 Delivery O2 Flow Rate FiO2 06/03/17 17:44 98.4 104 18 115/56 100 Room Air Sp02 EP Interpretation: reviewed, normal General Appearance: well appearing, no apparent distress Head: normocephalic, atraumatic Eyes: bilateral eye PERRL, bilateral eye EOMI ENT: hearing grossly normal, normal pharynx, TMs + canals normal, uvula midline Neck: full range of motion, supple, no meningismus, no bony tend Respiratory: lungs clear, normal breath sounds, no rhonchi, no respiratory distress, no retraction, no accessory muscle use Cardiovascular #1: normal peripheral pulses, regular rate, rhythm, no edema, no gallop, no JVD, no murmur Gastrointestinal: normal bowel sounds, non tender, soft, no mass, no organomegaly, non-distended, no guarding, no hernia, no pulsatile mass, no rebound, other - Blood no feeding tube in place no erythema. Evidence of multiple previous surgical scars Genitourinary: no CVA tenderness Neurologic: oriented x3, responsive, spray worker III-XII nml as tested, motor strength/ tone normal, sensory intact Psychiatric: mood/affect normal Skin: normal color, warm/dry, palpation normal, other - as above Lymphatic: normal inspection, no adenopathy Medical Decision Making Diagnostic Impression: Primary Impression: Abdominal pain ER Course Patient is complex with multiple differentials Including but not limited to bowel structure in, ileus, gastritis, pancreatitis Patient has had cholecystectomy previously At this time also complains mainly of the feeding tube site discomfort Baseline blood work was obtained which is negative Patient did better here in the ER On reevaluation patient and gentleman at bedside requests prescription for home I did notify them that secondary to the safety in prescribing campaign in [facility] Is crucial that the continued or pain medication through primary physician Patient has multiple medications filled at different facilities by different provider Last prescription was 7 days ago Patient was also scheduled for procedure several days ago and requires improved followup Labs Test 06/03/17 18:35 White Blood Count 8.6 K/UL (4.8-10.8) Red Blood Count 5.21 M/UL (4.20-5.40) Hemoglobin 13.2 G/DL (12.0-16.0) Hematocrit 43.9 % (37.0-47.0) Mean Corpuscular Volume 84 FL (80-99) Mean Corpuscular Hemoglobin 25.3 PG (27.0-31.0) Mean Corpuscular Hemoglobin Concent 30.0 G/DL (32.0-36.0) Red Cell Distribution Width 17.5 % (11.6-14.8) Platelet Count 381 K/UL (150-450) Mean Platelet Volume 5.7 FL (6.5-10.1) Neutrophils (%) (Auto) 62.0 % (45.0-75.0) Lymphocytes (%) (Auto) 29.6 % (20.0-45.0) Monocytes (%) (Auto) 5.2 % (1.0-10.0) Eosinophils (%) (Auto) 1.8 % (0.0-3.0) Basophils (%) (Auto) 1.4 % (0.0-2.0) Sodium Level 136 MMOL/L (136-145) Potassium Level 5.0 MMOL/L (3.5-5.1) Chloride Level 102 MMOL/L (98-107) Carbon Dioxide Level 21 MMOL/L (21-32) Anion Gap 13 mmol/L (5-15) Blood Urea Nitrogen 18 mg/dL (7-18) Creatinine 0.6 MG/DL (0.55-1.30) Estimat Glomerular Filtration Rate > 60 mL/min (>60) Glucose Level 88 MG/DL (74-106) Calcium Level 9.8 MG/DL (8.5-10.1) Last Vital Signs Date Time Temp Pulse Resp B/P (MAP) Pulse Ox O2 Delivery O2 Flow Rate FiO2 06/03/17 18:50 98.4 99 11 107/64 100 Room Air Status: improved Disposition: HOME, SELF-CARE Condition: Improved Referrals: [facility],REFERRING (PCP) Additional Instructions: Patient is provided with the discharge instructions notified to follow up with primary doctor in the next 2-3 days otherwise return to the er with any worsening symptoms. Please note that this report is being documented using [employer] technology. This can lead to erroneous entry secondary to incorrect interpretation by the dictating instrument. ALIYA VAUGHN D.O. Jun 03, 2017 19:19
[2017-06-03 19:42] LABS: BASOPHILS % (AUTO) 1.4 % (0.0-2.0); EOSINOPHILS % (AUTO) 1.8 % (0.0-3.0); LYMPHOCYTES % (AUTO) 29.6 % (20.0-45.0); MEAN CORPUSCULAR HEMOGLOBIN 25.3 PG (27.0-31.0); MEAN CORPUSCULAR VOLUME 84 FL (80-99); MEAN PLATELET VOLUME 5.7 FL (6.5-10.1); MONOCYTES % (AUTO) 5.2 % (1.0-10.0); PLATELET COUNT 381 K/UL (150-450); RED BLOOD COUNT 5.21 M/UL (4.20-5.40); RED CELL DISTRIBUTION WIDTH 17.5 % (11.6-14.8); WHITE BLOOD COUNT 8.6 K/UL (4.8-10.8)
[2017-06-03 19:53] LABS: ANION GAP 13 mmol/L (5-15); CALCIUM 9.8 MG/DL (8.5-10.1); CARBON DIOXIDE 21 MMOL/L (21-32); CHLORIDE 102 MMOL/L (98-107); CREATININE 0.6 MG/DL (0.55-1.30); GLOMERULAR FILTRATION RATE > 60 mL/min (>60); SODIUM 136 MMOL/L (136-145)
[2017-06-03 20:15] VITALS: BP 117/77
== END 2017-06-03 20:15 | disposition home or self-care (01) ==
LOC: EMR 17:57
DX: R10.9 Unspecified abdominal pain (principal); Z93.1 Gastrostomy status; Z90.49 Acquired absence of other specified parts of digestive tract; Z85.038 Personal history of other malignant neoplasm of large intestine
CPT/HCPCS: 36415; 80048; 85025; 96374; 96375; 99284; J2270; J2405; J7040